=== PATIENT | male | born 1970 | race Caucasian/White ===

== ENCOUNTER 2022-11-27 13:54 | Emergency (ER) | payer OTHER, SELFPAY ==
[2022-11-27 14:05] VITALS: BP 153/98; PULSE 59; RESP 16; TEMP 35.3; O2SAT 99
--- NOTE | 2022-11-27 14:39 | ED.NAVMDI ---
HPI - Nausea/Vomiting/Diarrhea General Chief complaint: Nausea/Vomiting/Diarrhea Stated complaint: Dizziness/Vomiting/Nausea Time Seen by Provider: 11/27/22 14:40 Mode of arrival: ambulatory Limitations: no limitations History of Present Illness HPI Narrative: 52-year-old male presents with concern for episodes of unsteadiness, dizziness, vomiting. Reports symptoms started today. He denies fever, aches, chills, sweats. Denies chest pain or shortness of breath. He reports diaphoresis earlier today. 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 He reports he recently restarted blood pressure medications. He sees a pharm spec, he is scheduled to see the pharm spec in 2 days. Has history of COPD and PA MD elicited complaint: nausea, vomiting and other (dizziness) Related Data Home Medications Medication Instructions Recorded Confirmed No Home Medications 11/27/22 11/27/22 Allergies Allergy/AdvReac Type Severity Reaction Status Date / Time bee venom protein (honey bee) Allergy Intermediate UNKNOWN Verified 11/21/18 18:35 acetaminophen Allergy Mild Unknown Verified 11/27/22 14:07 Horse Serum Proteins Allergy Mild Unknown Uncoded 11/27/22 14:07 Review of Systems Review of Systems: CONSTITUTIONAL: Denies malaise, chills, or fever. Reports sweats EYES: Denies visual changes, redness, or discharge. ENT: Denies rhinorrhea, congestion, sinus pain, otalgia or sore throat. CARDIOVASCULAR: Denies chest pain, palpitations, or edema. RESPIRATORY: Denies cough or dyspnea. GASTROINTESTINAL: Denies abdominal pain, diarrhea, bloody, or mucous stools. Reports nausea, vomiting GENITOURINARY: Denies dysuria or hematuria. SKIN: Denies rash or itching. MUSCULOSKELETAL: Denies back pain, joint pain, or myalgia. NEUROLOGIC: Denies numbness, weakness, or headache. Reports episodes of dizziness PSYCHIATRIC: Denies anxiety or depression. All systems reviewed & are unremarkable except as noted in HPI and below PMFSH Comments At time of signature, agree with nursing past medical, surgical, social and family history. There is no relevant family history pertinent to the presenting complaint Exam Narrative: GENERAL: Well-appearing, well-nourished, and in no acute distress. HEAD: Normocephalic, atraumatic. EYES: PERRLA, sclera clear, and EOMI. No nystagmus. ENT: Nares clear, turbinates pink, no rhinorrhea or epistaxis. Mucous membranes moist. TM pearly rudolph with sharp light reflex bilaterally; no tragal tenderness. Oropharynx without erythema or lesions. Tonsils not enlarged and without exudate. NECK: Supple. No lymphadenopathy. No jugular venous distension, thyromegaly, or carotid bruits. Carotids were easily palpable bilaterally. CHEST: No respiratory distress. Clear to auscultation. No bony deformities, no asymmetry. Speaks in full sentences. HEART: Regular rate and rhythm. No murmur heard. Normal peripheral pulses. ABDOMEN: Soft, nontender, nondistended, normal active bowel sounds, no palpable masses. EXTREMITIES: Normal range of motion. No edema. Normal strength and sensation. SKIN: Warm, dry, no visible rash. NEURO: Alert and oriented x3. No focal deficits. Cranial nerves II through XII grossly intact PSYCH: Normal mood and affect Course Course Emergency Course: Discussed with patient his exam findings, my concerns and suggestion to be transferred to the emergency room. Patient's body temperature is low on multiple checks with different modes. Patient does not have any history of exposure to the cold recently. Based on patient's dizziness, vomiting, low body temperature I do feel he needs further evaluation emergency room. Patient does not want to go to the emergency room at this time reports he has plans tonight, he would like to go home and get some sleep and help he will feel better. He understands risks of not ever
[2022-11-27 15:00] VITALS: TEMP 34.7
--- NOTE | 2022-11-27 15:08 | ECG_ITS ---
Measurements Intervals [place] Rate: 56 P: 57 OK: 145 QRS: 56 QRSD: 92 T: 47 QT: 472 QTc: 458 Interpretive Statements SINUS RHYTHM EARLY PRECORDIAL R/S TRANSITION BASELINE ARTIFACT- I, II BORDERLINE ECG NO PREVIOUS ECG AVAILABLE FOR COMPARISON Electronically Signed On 11-27-2022 15:35:39 CDT by Marcos Araiza D.O.
--- NOTE | 2022-11-27 15:24 | PC.NURSE ---
TEMPERATURE RETAKEN PER REQUEST OF HEEL EMERY BUFFER DUE TO TEMPORAL SCAN BEING LOW. ORAL TEMP IS 94.4 AT 1500. PT DENIES EVER HAVING LOW TEMPERATURE OR FEELING COLD.
== END 2022-11-27 15:20 | disposition left against medical advice (07) ==
PROVIDERS: Emergency Provider Nurse Practitioner; PCP Family Medicine
DX: R11.10 Vomiting, unspecified (principal); R68.89 Other general symptoms and signs
CPT/HCPCS: 93005; 99203; G0463

== ENCOUNTER 2023-07-08 16:28 | Emergency (ER) | payer OTHER, SELFPAY ==
[2023-07-08 16:36] VITALS: BP 146/96; PULSE 87; RESP 20; TEMP 37.7; O2SAT 96
--- NOTE | 2023-07-08 16:52 | ED.GENADULT ---
HPI - General Adult General Chief complaint: Skin/Abscess/Foreign Body Stated complaint: Skin Sore Source: patient, RN notes reviewed and old records reviewed Mode of arrival: ambulatory Limitations: no limitations History of Present Illness HPI narrative: 53-year-old male patient presents to [facility] with complaint abscess to rectal area. Patient states has had before and had to have it lanced. Patient states noted proximally 5-6 days ago. patient denies drainage. Related Data Home Medications Medication Instructions Recorded Confirmed albuterol sulfate 90 mcg/actuation inhalation 07/08/23 aerosol inhaler atorvastatin 40 mg tablet mg 07/08/23 bupropion HCl 150 mg 24 hr tablet, mg PO 07/08/23 extended release ergocalciferol (vitamin D2) 1,250 07/08/23 mcg (50,000 unit) capsule losartan 100 mg tablet mg 07/08/23 07/08/23 sildenafil 50 mg tablet mg 07/08/23 umeclidinium 62.5 mcg-vilanterol inhalation 07/08/23 25 mcg/actuation powdr for inhalation (Anoro Ellipta) Allergies Allergy/AdvReac Type Severity Reaction Status Date / Time bee venom protein (honey bee) Allergy Intermediate UNKNOWN Verified 11/21/18 18:35 acetaminophen Allergy Mild Unknown Verified 11/27/22 14:07 Horse Serum Proteins Allergy Mild Unknown Uncoded 11/27/22 14:07 Review of Systems Constitutional: Constitutional: Reports no additional constitutional complaints, Denies body ache(s), Denies chills, Denies fatigue, Denies fever(s) and Denies headache(s) Eyes: Eyes: Reports no additional eye complaints and Denies blurry vision ENT: Reports system reviewed and no additional complaints, except as documented, Denies vertigo, Denies dizziness, Denies ear discharge, Denies otalgia, Denies facial pain, Denies headache(s), Denies nasal congestion, Denies nasal discharge, Denies sinus pain, Denies sinus pressure and Denies sore throat Cardiovascular: Cardiovascular: Reports no additional cardiovascular complaints, Denies chest pain, Denies chest pain at rest, Denies rapid heart rate and Denies dyspnea Respiratory: Respiratory: Reports no additional respiratory complaints, Denies chest congestion, Denies cough, Denies pain on inspiration, Denies pain with cough and Denies dyspnea Gastrointestinal: Gastrointestinal: Denies abdominal pain, Denies diarrhea, Denies nausea and Denies vomiting Integumentary/Breasts: Skin/Breast: Denies rash and Reports wounds Neurologic: Reports system reviewed and no additional complaints, except as documented, Denies vertigo, Denies dizziness and Denies headache(s) Endocrine: Endocrine: Denies fatigue PMFSH Comments At the time of my signature, I reviewed and agree with the nursing past medical, surgical, social, and family history. There is no relevant family history pertinent to the patient complaint. Exam Const: General: cooperative, healthy appearing, no acute distress and well nourished Nutritional Appearance: well nourished Orientation/consciousness: patient oriented x3 Limitations: no limitations HENMT: Head: normal to inspection and normocephalic Ears: external ears normal Face/Nose/Sinus: normal facial exam Face and sinus: normal facial exam Mouth: Yes Normal oral and palatal mucosa present, Yes oropharynx normal and Yes moist mucous membranes Eyes: General: appearance normal, both eyes and all related structures Sclera: sclerae normal Pupils: Equal, round and reactive pupils present Resp: Effort & Inspection: normal respiratory effort, able to speak in complete sentences, no audible wheezes, no cough, no respiratory distress and no retractions Skin: General skin exam: normal color Wounds: wounds noted ( 1 cm abscess to right rectal area) Neuro: General: patient oriented x3 Cranial nerves: Yes Equal, round and reactive pupils present Psych: Appearance: grossly normal Mental Status: mental status grossly normal Speech and movement: Normal speech and movement present Affect: normal aff
== END 2023-07-08 17:10 | disposition home or self-care (01) ==
PROVIDERS: Emergency Provider Registered Nurse; PCP Family Medicine
DX: K61.1 Rectal abscess (principal); I10 Essential (primary) hypertension
CPT/HCPCS: 46050; 99213; G0463

== ENCOUNTER 2024-01-24 16:23 | Emergency (ER) | payer OTHER, SELFPAY ==
[2024-01-24] MEDS: RAPID SEQUENCE INTUBATION KIT 1 EACH (16:29)
--- NOTE | 2024-01-24 16:29 | PC.NURSE ---
RSI kit was open and used. 100 of sucs and 30 of etomidate at 1629 for intubation
--- NOTE | 2024-01-24 16:42 | PC.NURSE ---
soler cath was placed at 164. cath was a 16 kiswahili. sterile technique was applied. cath was removed at 2044
--- NOTE | 2024-01-24 16:53 | ED_ITS ---
HPI - General Adult General Chief complaint: Cardiac Arrest/CPR Stated complaint: STEMI/cardiac arrest History of Present Illness HPI narrative: Patient is a 53-year-old male who presents ER in cardiac arrest. Patient had been having chest pain for 30 hours and contacted EMS. In the field patient demonstrated high lateral STEMI. STEMI was activated. In route patient had VFib arrest and responded to defibrillation. He then lost pulses just prior to arriving at the hospital. [employer] able to review chart through [facility] and patient has history of nonischemic cardiomyopathy with history of low ejection fraction that then responded to standard therapy. Last catheterization was in 2020. Related Data Home Medications Medication Instructions Recorded Confirmed albuterol sulfate 90 mcg/actuation See Rx Instructions .Route .COMPLEX 07/08/23 07/08/23 aerosol inhaler atorvastatin 40 mg tablet 40 mg PO DAILY 07/08/23 07/08/23 bupropion HCl 150 mg 24 hr tablet, 150 mg PO DAILY 07/08/23 07/08/23 extended release ergocalciferol (vitamin D2) 1,250 See Rx Instructions .Route .COMPLEX 07/08/23 07/08/23 mcg (50,000 unit) capsule losartan 100 mg tablet 100 mg PO DAILY 07/08/23 07/08/23 sildenafil 50 mg tablet See Rx Instructions .Route .COMPLEX 07/08/23 07/08/23 umeclidinium 62.5 mcg-vilanterol See Rx Instructions .Route .COMPLEX 07/08/23 07/08/23 25 mcg/actuation powdr for inhalation (Anoro Ellipta) Allergies Allergy/AdvReac Type Severity Reaction Status Date / Time bee venom protein (honey bee) Allergy Intermediate UNKNOWN Verified 11/21/18 18:35 acetaminophen Allergy Mild Unknown Verified 11/27/22 14:07 Horse Serum Proteins Allergy Mild Unknown Uncoded 11/27/22 14:07 Review of Systems Review of Systems: ROS unobtainable: Yes unobtainable due to medical condition PMFSH Past Medical History Medical History (Updated 01/24/24 @ 18:30 by Billy Rodriguez MD) History of left heart catheterization Hyperlipidemia Hypertension Nonischemic cardiomyopathy Surgical History Surgical History (Updated 01/24/24 @ 18:30 by Billy Rodriguez MD) No pertinent past surgical history Exam Narrative: GENERAL: Patient grabs at staff during chest compressions but then loses consciousness when chest compressions are withheld. HEAD: Normocephalic, atraumatic. EYES: PERRLA and EOMI. ENT: Mucous membranes moist. CHEST: Clear to auscultation. No respiratory distress. HEART: Intermittent pulses. ABDOMEN: Soft, nontender, nondistended. EXTREMITIES: Normal range of motion. No edema. SKIN: Cool, dry, rudolph mottled NEURO: During compressions patient is awake alert and localizes to pain, he then loses pulses and has a GCS of 3. Course Course Emergency Course: 1726: Patient with prolonged ACLS protocol. He received epinephrine multiple doses, 300 mg of amiodarone, atropine, he was on an epinephrine infusion, calcium, magnesium, and sodium bicarb. He had multiple rounds of defibrillation for ventricular fibrillation. He would have return of pulses but then go back into VFib. Ultimately had a slow electrical output with cardiac ultrasound that showed scant movement of the heart. Patient then went into asystole with his children at the bedside. Patient was pronounced as having at 5:25 p.m. 1834: I have been in contact with patient's primary care physician Dr. Dana ordonez who will sign the certificate. Medical Decision Making Lab Data Labs: Lab Results 01/24/24 Range/Units 16:35 POC Capillary Glucose 163 H (65-105) mg/dl Critical Care Time Critical Care Time Critical Care Time: Yes Total Critical Care Time: 65 Discharge Plan Discharge Clinical Impression: ST elevation (STEMI) myocardial infarction, Ventricular fibrillation, Ventricular tachycardia, Cardiopulmonary arrest Patient Disposition: Condition: Prescriptions: No Action sulfamethoxazole-trimethoprim [Bactrim DS] 800-160 mg tablet 1 tablet PO Q12H 10 Days Qty: 20 0RF atorvastatin 40 mg tablet 40 mg PO DAILY sildenafil 50 mg tablet See Rx Instructions .ROUTE .COMPLEX Rx Instructions: as prescribed ergocalciferol (vitamin D2) 1,250 mcg (50,000 unit) capsule See Rx Instructions .ROUTE .COMPLEX Rx Instructions: as prescribed albuterol sulfate 90 mcg/actuation HFA aerosol inhaler See Rx Instructions .ROUTE .COMPLEX Rx Instructions: as prescribed losartan 100 mg tablet 100 mg PO DAILY bupropion HCl 150 mg tablet extended release 24 hr 150 mg PO DAILY Anoro Ellipta 62.5-25 mcg/actuation blister with device See Rx Instructions .ROUTE .COMPLEX Rx Instructions: as prescribed Follow-up/Referrals: Caty,Darryl Urrutia MD [Primary Care Provider] -
--- NOTE | 2024-01-24 17:03 | PC.NURSE ---
250ml bag of NS was used at 1703 for an epi drip in the IO line
--- NOTE | 2024-01-24 17:17 | PC.NURSE ---
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 [facility] cancelled also
[2024-01-24 17:22] LABS: Glucose Point of Care 163 mg/dl (65-105)
--- NOTE | 2024-01-24 17:36 | PC.NURSE ---
pt came into ed for STEMI, pt was being coded upon arrival. see code sheet
--- NOTE | 2024-01-24 18:34 | PC.NURSE ---
Spoke with Angela about address pt was at and that it was his place of employment.
--- NOTE | 2024-01-24 19:20 | PC.NURSE ---
Clergy here to bless patient. Family has left at this time. RN aware pt can go to the morgue and to write down morgue time.
[2024-01-24] MEDS: SODIUM CHLORIDE 0.9% IV 250 ML (19:35)
--- NOTE | 2024-01-24 19:55 | PC.NURSE ---
[facility] states they are releasing.
--- NOTE | 2024-01-24 20:04 | PC.NURSE ---
[facility] Released,
--- NOTE | 2024-01-24 20:47 | PC.NURSE ---
pt was taken down to the morgue at this time. pt was covered up for his privacy and all doors leading to the [facility] were closed
--- NOTE | 2024-02-12 11:03 | PC.NURSE ---
LATE ENTRY This note is being entered to document information to the patient's record. The following information was omitted on [02/12/24], by [Yamilet Wyatt RN]. EDP approved the order for a soler catheter on this pt at 1615 on 01/24/24
== END 2024-01-24 20:49 | disposition expired ==
PROVIDERS: Emergency Provider Emergency Medicine; PCP Family Medicine
DX: I21.3 ST elevation (STEMI) myocardial infarction of unspecified site (principal); I46.9 Cardiac arrest, cause unspecified; I49.01 Ventricular fibrillation; I47.20 Ventricular tachycardia, unspecified; I42.8 Other cardiomyopathies; I10 Essential (primary) hypertension; E78.5 Hyperlipidemia, unspecified; Z79.899 Other long term (current) drug therapy
CPT/HCPCS: 31500; 51702; 82948; 92950; 96365; 96375; 99285; J0171; J0282; J0330; J0461; J1644; J2003; J3475; J7050; J7060